=== PATIENT | female | born 1970 | race American Indian/Alaskan Native ===

== ENCOUNTER 2019-02-19 20:59 | Emergency (ER) | payer BC ==
--- NOTE | 2019-02-19 22:06 | Emergency Department Report ---
HPI - General Chief Complaint: Psych Time Seen by Provider: 02/19/19 21:52 - HPI HPI: Oliver [id number] The patient is a 48-year-old female presenting with a chief complaint suicidal ideation. The patient states she is recently terminated from her job a [employer]. The patient states she has suicidal ideation since November 2018 when she was terminated from her job the first time. The patient was allowed to return to work but after 2 weeks she was terminated again. Patient states she's been very upset at her recent termination has had thoughts of wanting to harm herself today. Patient states her plan was to overdose on Benadryl. Patient denies any actual attempt at harming herself. The patient states that instead of attempting to commit suicide she called 911 Location: Mental state Duration: One day Quality: Suicidal Severity: [See above] Modifying factors: [see above] Context: [see above] Mode of transportation: [not driving] ED Past Medical Hx - Past Medical History Previous Medical History?: Yes Hx Hypertension: Yes (noncompliant with meds) - Surgical History Past Surgical History?: Yes Additional Surgical History: breast reduction - Family History Family history: no significant - Social History Smoking Status: Never Smoker Substance Use Type: None (denies illicit drug use), Alcohol (frequently) - Medications Home Medications: Home Medications Medication Instructions Recorded Confirmed Last Taken Type No Known Home Medications [No 02/19/19 02/19/19 Unknown History Reported Home Medications] ED Review of Systems ROS: Stated complaint: DEPRESSION/SUICIDAL Other details as noted in HPI Constitutional: no symptoms reported Eyes: denies: eye pain ENT: denies: throat pain Respiratory: no symptoms reported Cardiovascular: denies: chest pain Endocrine: no symptoms reported Gastrointestinal: denies: abdominal pain Genitourinary: denies: dysuria Musculoskeletal: denies: back pain Neurological: denies: headache Psychiatric: suicidal thoughts Physical Exam - Physical Exam Vital Signs: Vital Signs 02/19/19 21:35 Temperature 97.9 F Pulse Rate 75 Respiratory 18 Rate Blood Pressure 152/79 [Left] O2 Sat by Pulse 98 Oximetry Physical Exam: GENERAL: The patient is well-developed well-nourished female lying on stretcher not appearing to be in acute distress. [] HEENT: Normocephalic. Atraumatic. Extraocular motions are intact. Patient has moist mucous membranes. NECK: Supple. Trachea midline CHEST/LUNGS: Clear to auscultation. There is no respiratory distress noted. HEART/CARDIOVASCULAR: Regular. There is no tachycardia. There is no gallop rub or murmur. ABDOMEN: Abdomen is soft, nontender. Patient has normal bowel sounds. There is no abdominal distention. SKIN: There is no rash. There is no edema. There is no diaphoresis. NEURO: The patient is awake, alert, and oriented. The patient is cooperative. The patient has normal speech and gait. MUSCULOSKELETAL: There is no evidence of acute injury. ED Course Vital Signs 02/19/19 21:35 Temperature 97.9 F Pulse Rate 75 Respiratory 18 Rate Blood Pressure 152/79 [Left] O2 Sat by Pulse 98 Oximetry ED Medical Decision Making - Lab Data Result diagrams: 02/19/19 21:43 02/19/19 21:43 Laboratory Tests 02/19/19 02/19/19 02/19/19 21:43 21:43 21:43 WBC RBC Hgb Hct MCV MCH MCHC RDW Plt Count Lymph % (Auto) [place] % (Auto) Eos % (Auto) Baso % (Auto) Lymph # [place] # Eos # Baso # Seg Neutrophils % Seg Neutrophils # Sodium 143 Potassium 4.5 Chloride 108.9 H Carbon Dioxide 19 L Anion Gap 20 BUN 15 Creatinine 0.6 L Estimated GFR > 60 BUN/Creatinine Ratio 25 Glucose 78 Calcium 9.5 HCG, Qual Urine Color Urine Turbidity Urine pH Ur Specific [place] Urine Protein Urine Glucose (UA) Urine Ketones Urine Blood Urine Nitrite Urine Bilirubin Urine Urobilinogen Ur Leukocyte Esterase Urine WBC (Auto) Urine RBC (Auto) U Epithel Cells (Auto) Urine Bacteria (Auto) Urine Mucus Salicylates 7.6 Urine Opiates Screen Urine Methadone Screen Acetaminophen < 5.0 L Ur Barbiturates Screen Ur Phencyclidine Scrn Ur Amphetamines Screen U Benzodiazepines Scrn Urine Cocaine Screen U Marijuana (THC) Screen Drugs of Abuse Note Plasma/Serum Alcohol 02/19/19 02/19/19 02/19/19 21:43 21:43 21:43 WBC 5.3 RBC 4.79 Hgb 14.7 H Hct 43.1 H MCV 90 MCH 31 MCHC 34 RDW 13.5 Plt Count 325 Lymph % (Auto) 26.9 [place] % (Auto) 6.2 Eos % (Auto) 3.0 Baso % (Auto) 1.3 Lymph # 1.4 [place] # 0.3 Eos # 0.2 Baso # 0.1 Seg Neutrophils % 62.6 Seg Neutrophils # 3.3 Sodium Potassium Chloride Carbon Dioxide Anion Gap BUN Creatinine Estimated GFR BUN/Creatinine Ratio Glucose Calcium HCG, Qual Negative Urine Color Urine Turbidity Urine pH Ur Specific [place] Urine Protein Urine Glucose (UA) Urine Ketones Urine Blood Urine Nitrite Urine Bilirubin Urine Urobilinogen Ur Leukocyte Esterase Urine WBC (Auto) Urine RBC (Auto) U Epithel Cells (Auto) Urine Bacteria (Auto) Urine Mucus Salicylates Urine Opiates Screen Urine Methadone Screen Acetaminophen Ur Barbiturates Screen Ur Phencyclidine Scrn Ur Amphetamines Screen U Benzodiazepines Scrn Urine Cocaine Screen U Marijuana (THC) Screen Drugs of Abuse Note Plasma/Serum Alcohol 0.06 02/19/19 02/19/19 22:10 22:10 WBC RBC Hgb Hct MCV MCH MCHC RDW Plt Count Lymph % (Auto) [place] % (Auto) Eos % (Auto) Baso % (Auto) Lymph # [place] # Eos # Baso # Seg Neutrophils % Seg Neutrophils # Sodium Potassium Chloride Carbon Dioxide Anion Gap BUN Creatinine Estimated GFR BUN/Creatinine Ratio Glucose Calcium HCG, Qual Urine Color Yellow Urine Turbidity Slightly-cloudy Urine pH 5.0 Ur Specific [place] 1.024 Urine Protein <15 mg/dl Urine Glucose (UA) Neg Urine Ketones Neg Urine Blood Lg Urine Nitrite Neg Urine Bilirubin Neg Urine Urobilinogen < 2.0 Ur Leukocyte Esterase Tr Urine WBC (Auto) 1.0 Urine RBC (Auto) 3.0 U Epithel Cells (Auto) 2.0 Urine Bacteria (Auto) 1+ Urine Mucus Few Salicylates Urine Opiates Screen Presumptive negative Urine Methadone Screen Presumptive negative Acetaminophen Ur Barbiturates Screen Presumptive negative Ur Phencyclidine Scrn Presumptive negative Ur Amphetamines Screen Presumptive negative U Benzodiazepines Scrn Presumptive negative Urine Cocaine Screen Presumptive negative U Marijuana (THC) Screen Presumptive negative Drugs of Abuse Note Disclamer Plasma/Serum Alcohol - Differential Diagnosis suicidal ideation Critical care attestation.: If time is entered above; I have spent that time in minutes in the direct care of this critically ill patient, excluding procedure time. ED Disposition Clinical Impression: Suicidal ideation Disposition: [id number]/TX-[id number] PSY HOSP/PSY UNIT Is pt being admited?: No Does the pt Need Aspirin: No Condition: Serious Time of Disposition: 22:08 (awaiting acceptance)
[2019-02-19 22:11] LABS: Basophils # (Auto) 0.1 K/mm3 (0.0-0.1); Basophils % (Auto) 1.3 % (0.0-1.8); Eosinophils # (Auto) 0.2 K/mm3 (0.0-0.4); Hematocrit 43.1 % (30.3-42.9); Hemoglobin 14.7 gm/dl (10.1-14.3); Lymphocytes # (Auto) 1.4 K/mm3 (1.2-5.4); Lymphocytes % (Auto) 26.9 % (13.4-35.0); Mean Corpuscular HGB Conc 34 % (30-34); Mean Corpuscular Volume 90 fl (79-97); Monocytes # (Auto) 0.3 K/mm3 (0.0-0.8); Monocytes % (Auto) 6.2 % (0.0-7.3); Platelet Count 325 K/mm3 (140-440); Red Blood Count 4.79 M/mm3 (3.65-5.03); Red Cell Distribution Width 13.5 % (13.2-15.2)
[2019-02-19 22:17] LABS: BUN/Creatinine Ratio 25; Blood Urea Nitrogen 15 mg/dL (7-17); Calcium 9.5 mg/dL (8.4-10.2); Hemolysis Index 52
[2019-02-19 22:48] LABS: Color,Urine Yellow (Yellow)
[2019-02-19 22:49] LABS: Amphetamine Screen,Urine PRESUMPTIVE NEGATIVE; Bacteria,Urine 1+ /HPF (Negative); Benzodiazepines Screen,Urine PRESUMPTIVE NEGATIVE; Bilirubin,Urine NEG (Negative); Blood,Urine LG (Negative); Cannabinoid Screen,Urine PRESUMPTIVE NEGATIVE; Cocaine Screen,Urine PRESUMPTIVE NEGATIVE; Methadone Screen,Urine PRESUMPTIVE NEGATIVE; Mucus,Urine FEW /HPF; Opiate Screen,Urine PRESUMPTIVE NEGATIVE; Protein,Urine <15 mg/dL mg/dL (Negative); Urobilinogen,Urine < 2.0 mg/dL (<2.0)
--- NOTE | 2019-02-20 17:52 | Consultation ---
History of Present Illness - Reason for Consult Consult date: 02/20/19 Reason for consult: psych evaluation - Chief Complaint Chief complaint: "My job keeps firing me for no reason, I should eliminate myself." - History of Present Psychiatric Illness 48 year old AA female seen in the ER for psychiatric evaluation. She states she has lost her job twice in the last 2 weeks and says "I should eliminate myself; I don't want to go to senior living." The record indicates she reports thoughts of overdosing x 1 week. She did not explain further. She states she needs "sessions" [counseling]. She states she was unaware she would be transferred anywhere. She wants to find another job to pay her bills. She has never received mental health treatment but acknowledges a history of depression. She would not look at this provider and spent most of the time asking about the process surrounding the 1012. 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 Should did not discuss. Medications and Allergies Allergies Allergy/AdvReac Type Severity Reaction Status Date / Time naproxen Allergy Swelling Verified 02/19/19 21:39 Home Medications Medication Instructions Recorded Confirmed Last Taken Type No Known Home Medications [No 02/19/19 02/19/19 Unknown History Reported Home Medications] Past psychiatric history - past Psychiatric treatment and history psychiatric treatment history: none - Social History Social history: Lives alone Mental Status Exam - Vital signs Last Vital Signs Temp 98.2 F 02/20/19 08:30 Pulse 68 02/20/19 08:30 Resp 18 02/20/19 08:30 BP 160/75 02/20/19 08:30 Pulse Ox 99 02/20/19 08:30 - Exam Orientation: time, place, person Affect: depressed, agitated Mood: congruent with affect Thought content: other (suicidal ideation, plan to overdose x 1 week) Thought Process: Circumstantial Perceptions: none Speech: normal rate and pattern Concentration: focused Motor activity: normal Level of consciousness: alert Memory: Intact Sleep Symptoms: None (did not discuss) Interaction: irritable, defensive Results Result Diagrams: 02/19/19 21:43 02/19/19 21:43 Abnormal lab results 02/19/19 02/19/19 02/19/19 Range/Units 21:43 21:43 21:43 Hgb 14.7 H (10.1-14.3) gm/dl Hct 43.1 H (30.3-42.9) % Chloride 108.9 H (98-107) mmol/L Carbon Dioxide 19 L (22-30) mmol/L Creatinine 0.6 L (0.7-1.2) mg/dL Acetaminophen < 5.0 L (10.0-30.0) ug/mL All other labs normal. Assessment and Plan Assessment and plan: Impression: suicidal ideation. r/o homicidal ideation major depression, unspecified r/o alcohol use disorder, no withdrawal differential dx: bipolar disorder. substance induced mood disorder Attempt to interview in 24 hours. Recommendation: continue 1013 unable to discuss med options at this time due to mental status dispo: inpatient psych facility will staff with Dr. Calero
--- NOTE | 2019-02-21 09:14 | Progress Note ---
Subjective - Reason for Consult Consult date: 02/21/19 Reason for consult: Psychiatry Follow-up - Chief Complaint Chief complaint: "I need to go to work" 48 year old AA female who presented to the ER for a psychiatric evaluation. Today the patient was somewhat uncooperative during the assessment. She did acknowledge that she was suicidal upon her arrival the ER with a plan to overdose on Benadryl. She was asked several; questions about her mental health, she would not answer. Several attempts was made to engage the patient, but was unsuccessful. Mental Status Exam - Vital signs Last Vital Signs Temp 98.2 F 02/21/19 07:56 Pulse 60 02/21/19 07:56 Resp 16 02/21/19 07:56 BP 128/66 02/21/19 07:56 Pulse Ox 99 02/21/19 07:56 - Exam Narrative exam: MSE: Appearance: somewhat uncooperative Behavior: poor eye contact Speech: regular rate and tone Mood: "okay" Affect: unable to assess Thought Process: unable to assess Thought Content: denies SI/HI's Motor Activity: ambulatory Cognition: A/O x3 Insight: unable to assess Judgment: poor Assessment and Plan Impression: MDD. Today the patient was somewhat uncooperative during the assessment. DDx: R/O Bipolar DO Recommendation/Plan: Continue 1013 and attempt to reassess the patient in 24 hours. Dispo: The patient was referred to inpatient psy services. Will staff with Dr Suresh Calero.
[2019-02-21] MEDS ORDERED: TYLENOL PO ONE (23:04)
--- NOTE | 2019-02-22 10:05 | Progress Note ---
Subjective - Reason for Consult Consult date: 02/22/19 Reason for consult: Psychiatry Follow-up - Chief Complaint Chief complaint: "I've been doing some thinking"" 48 year old AA female who presented to the ER for a psychiatric evaluation. Today the patient was calm and cooperative during the assessment. She stated that she felt like she could have handled her crisis better prior to coming to the ER. 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 She denies a mental health dx. She is adamant that she haven't tried to kill herself in the past. She denies SI/HI's and AVH's. She denies SI/HI's and AVH's. She stated that she need more time to think about taking a antidepressant for depression. Mental Status Exam - Vital signs Last Vital Signs Temp 98.4 F 02/22/19 08:13 Pulse 60 02/22/19 08:13 Resp 16 02/22/19 08:13 BP 156/77 02/22/19 08:13 Pulse Ox 100 02/22/19 08:13 - Exam Narrative exam: MSE: Appearance: calm, cooperative Behavior: regular eye contact Speech: regular rate and tone Mood: "okay" Affect: congruent to mood Thought Process: circumstantial Thought Content: denies SI/HI's and AVH's Motor Activity: ambulatory Cognition: A/O x3 Insight: fair Judgment: variable to fair Assessment and Plan Impression: MDD. Today the patient was calm and cooperative during the assessment. DDx: R/O Bipolar DO Recommendation/Plan: Continue 1013. Discussed risks/benefits of SSRIs with patient, she verbalized understanding. The patient need more time to think about taking a antidepressant. Dispo: The patient was accepted at [facility] for inpatient psy services pending transport time. Will staff with Dr Suresh Calero.
[2019-02-23 08:19] VITALS: BP 128/65
== END 2019-02-23 09:10 ==
LOC: ED 20:59 → EEVIPCON 20:59 → ED 02-23 09:10
DX: F32.9 Major depressive disorder, single episode, unspecified (principal); Z88.8 Allergy status to other drugs, medicaments and biological substances; I10 Essential (primary) hypertension
CPT/HCPCS: 36415; 80048; 80307; 80320; 81001; 84703; 85025; 99285; G0480